=== PATIENT | female | born 1995 | race Caucasian/White ===

== ENCOUNTER 2023-03-30 01:30 | Emergency (ER) | payer OTHER ==
[~2023-03-30] VITALS: Ht 172.7 cm; Wt 86.3 kg
[2023-03-30 02:03] LABS: URINE PREG TEST NEGATIVE (NEGATIVE)
[2023-03-30] MEDS ORDERED: cefTRIAXone SOD 1 GM in D5W MINI-BAG PLUS 50 ML IV ONE (02:35)
[2023-03-30 02:53] LABS: BASO # 0.1 10^3/uL (0.0-0.2); BASO % 0.4 % (0.0-1.0); EOS % 0.1 % (0.0-3.0); HEMATOCRIT 37.9 % (36.0-47.0); HEMOGLOBIN 12.8 g/dl (12.0-15.5); MEAN CORPUSCULAR HEMOGLOBIN 26.6 pg (27.0-33.0); MEAN CORPUSCULAR HGB CONC 33.8 g/dl (32.0-36.5); MEAN CORPUSCULAR VOLUME 78.8 fl (80.0-96.0); MONO # 0.8 10^3/uL (0.0-0.8); MONO % 5.1 % (2.0-8.0); NEUTROPHILS # 12.6 10^3/uL (1.5-8.5); NEUTROPHILS % 81.1 % (36.0-66.0); PLATELET COUNT, AUTOMATED 240 10^3/uL (150-450); RED BLOOD COUNT 4.81 10^6/uL (4.00-5.40); WHITE BLOOD COUNT 15.5 10^3/uL (4.0-10.0)
[2023-03-30] MEDS ORDERED: CEFD300C42 PO (05:24)
[2023-03-30 05:30] VITALS: BP 120/77; TEMP 97.8; O2SAT 98
[2023-03-30 11:37] LABS: BLOOD UREA NITROGEN 14 MG/DL (7-21); CALCIUM LEVEL 9.3 MG/DL (8.4-10.2); CARBON DIOXIDE LEVEL 23 MEQ/L (22-30); CHLORIDE LEVEL 105 MEQ/L (98-107); CREATININE FOR GFR 0.9 MG/DL (0.7-1.5); GLOMERULAR FILTRATION RATE > 60.0 (>60); GLUCOSE, FASTING 122 MG/DL (70-99); POTASSIUM SERUM 4.3 MEQ/L (3.6-5.0); SODIUM LEVEL 140 MEQ/L (134-153)
[2023-03-30 11:38] LABS: ALBUMIN 4.1 G/DL (3.9-5.0); ALKALINE PHOSPHATASE 51 U/L (35-104); ALT/SGPT 9 U/L (1-33); AST/SGOT 16 U/L (5-40); BILIRUBIN,DIRECT < 0.2 MG/DL (0.1-0.4); BILIRUBIN,TOTAL < 0.7 MG/DL (0.2-1.3); LIPASE 21 U/L (13-60); TOTAL PROTEIN 6.8 G/DL (6.3-8.2)
[2023-04-01] MEDS ORDERED: SULF1TAB23 PO (11:14)
== END 2023-03-30 05:46 | disposition home or self-care (01) ==
LOC: M ED 01:30
DX: N10 Acute pyelonephritis (principal); Z79.2 Long term (current) use of antibiotics
CPT/HCPCS: 74176; 80048; 80076; 81001; 83690; 84703; 85025; 87088; 87186; 93041; 96365; 99284; J0696

== ENCOUNTER → 2025-01-27 | Outpatient (CLI) | payer OTHER ==
[~2025-01-27] MED LIST: CEFD1CAP9 PO; SULF1TAB23 PO
[2025-01-27 14:08] LABS: PLATELET COUNT, AUTOMATED 222 10^3/uL (150-450)
[2025-01-27 14:23] LABS: GLUCOSE CHALLENGE TEST 1 HOUR 85 MG/DL (LESS THAN 140)
[2025-01-27 15:08] LABS: HIV 1&2 SCREEN NEGATIVE (NEGATIVE)
[2025-01-27 15:38] LABS: Trichomonas vaginalis (AMP) NOT DETECTED (NEGATIVE)
[2025-01-27 15:51] LABS: HEPATITIS C VIRUS ABY INDEX < 0.02 INDEX (<0.8)
[2025-01-27 16:02] LABS: GC DNA AMPLIFICATION NEGATIVE (NEGATIVE)
== END ==
LOC: M PLALAB 09:58
PROVIDERS: ATTEND Nurse Practitioner Family
DX: Z34.80 Encounter for supervision of other normal pregnancy, unspecified trimester (principal)

== ENCOUNTER → 2025-02-18 | Outpatient (CLI) | payer OTHER | LOC: M RAD 12:46 | PROVIDERS: ATTEND Nurse Practitioner Family | DX: Z34.83 Encounter for supervision of other normal pregnancy, third trimester (principal); Z3A.29 29 weeks gestation of pregnancy ==

== ENCOUNTER → 2025-04-06 | Outpatient (CLI) | payer OTHER | LOC: M WHC 08:00 | PROVIDERS: ATTEND Advanced Practice Midwife | DX: O10.013 Pre-existing essential hypertension complicating pregnancy, third trimester (principal); Z3A.36 36 weeks gestation of pregnancy ==

== ENCOUNTER → 2025-04-06 | Outpatient (REF) | payer OTHER | LOC: M SFHCWAGY 13:16 | PROVIDERS: ATTEND Obstetrics & Gynecology | DX: Z34.93 Encounter for supervision of normal pregnancy, unspecified, third trimester (principal); Z36.85 Encounter for antenatal screening for Streptococcus B; Z3A.36 36 weeks gestation of pregnancy ==